=== PATIENT | female | born 1995 | race Caucasian/White ===

== ENCOUNTER 2018-09-05 02:10 | Emergency (ER) | payer BC, SELFPAY ==
[2018-09-05 02:11] VITALS: BP 136/79; PULSE 109; RESP 16; TEMP 36.5; O2SAT 100; BMI 24.1
--- NOTE | 2018-09-05 02:21 | ED.VISSUMM ---
- ER Visit Summary Date of Service: 09/05/18 Chief Complaint: Right ear infection History of Present Illness: The patient is a 23 F who presents with right ear redness pain and swelling. She has had her ears gauged for years. However she recently removed the piercing. Since yesterday she has noticed some redness and swelling. She also noticed a bubble on her neck it is since concerned that she has infection going down into her neck. No fevers. No nausea or vomiting. No systemic symptoms. Physical Examination: Afebrile initial heart rate 109 Patient resting comfortably no distress Heart regular rate and rhythm Lungs are clear Patient has erythema and soft tissue swelling of the right earlobe around the site of her piercing She has a single enlarged tender preauricular lymph node Test Results: Not indicated Emergency Department Course and Treatment: Patient has cellulitis of her earlobe. She was given Keflex and Bactrim here as well as prescriptions for the same. She understands to return for new or worsening symptoms and was discharged home. Treatment Plan: [] Disposition: Discharge Impression: Cellulitis right ear This note was generated with [employer] dictation software. It may contain incorrect words, spelling, and punctuation that were not noted in review of the chart prior to signing ED Disposition - Plan for ED Patient: Chief Complaint: Ear Problem Referrals: Bruno Carey MD [Primary Care Provider] -
--- NOTE | 2018-09-05 02:22 | ED.DEP ---
ED Disposition - Plan for ED Patient: Chief Complaint: Ear Problem Instructions: ED Infec Skin Cellulitis Prescriptions: Cephalexin [Keflex] 500 mg PO Q6 #28 cap Smz/Tmp Ds [Bactrim Ds] 1 tab PO BID #14 tab Referrals: Bruno Carey MD [Primary Care Provider] -
[2018-09-05 02:27] VITALS: BP 126/86; PULSE 99; RESP 16; O2SAT 100
[2018-09-05] MEDS: Cephalexin 250 MG Capsule 500 MG PO (02:30)
[2018-09-05] MEDS: Smz/Tmp Ds Tablet 1 TABLET PO (02:30)
== END 2018-09-05 02:32 | disposition home or self-care (01) ==
LOC: ED 02:24
PROVIDERS: Emergency Provider Emergency Medicine; Family Provider Family Medicine; PCP Family Medicine
DX: H60.11 Cellulitis of right external ear (principal); Z72.0 Tobacco use
CPT/HCPCS: 99283

== ENCOUNTER 2019-02-07 18:19 | Emergency (ER) | payer OTHER, SELFPAY ==
[2019-02-07 18:20] VITALS: BP 128/73; PULSE 85; RESP 16; TEMP 36.6; O2SAT 98; BMI 23.3
--- NOTE | 2019-02-07 19:12 | ED.DCSUM_ITS ---
- ER Visit Summary Date of Service: 02/07/19 Chief Complaint: Dental pain History of Present Illness: The patient is a 23 F who presents with dental pain is been getting worse over the last 4 days. Patient states she had a procedure done 4 days ago and was told by her dentist that there was nerve damage in her tooth. Patient has been on penicillin and ibuprofen with no improvement. Patient feels like there is some swelling of her face. Patient denies any hot or cold sensitivity. Physical Examination: Vital signs are stable. Patient is afebrile. Patient is in no acute distress. Oral mucosa is pink and moist. There is tenderness to percussion over the right upper first molar. There is some gingival edema around this tooth. There is no fluctuance. There is no discharge or drainage. Oropharynx is clear. Neck is supple. Trachea is midline. There is no JVD noted. Cranial nerves II through XII are intact. There are no focal motor or sensory deficits noted. Emergency Department Course and Treatment: Patient was given prescriptions for Augmentin and Naprosyn. Patient was instructed to stop taking the penicillin and ibuprofen. Patient was instructed to follow-up with her dentist in 3 to 5 days. Patient understood and was agreeable with the plan. All questions were answered. Disposition: Discharge home Impression: Odontalgia This note was generated with [employer] dictation software. It may contain incorrect words, spelling, and punctuation that were not noted in review of the chart prior to signing ED Disposition - Plan for ED Patient: Disposition: Home or Assisted Living Diagnosis: Odontalgia Instructions: ED Tooth Pain Prescriptions: Amox/Clavulanate Tablet [Augmentin Tablet] 875 mg PO Q12H #20 tab Naproxen [Naprosyn] 500 mg PO BID PRN #20 tab Referrals: Bruno Carey MD [Primary Care Provider] - 3-5 Days
[2019-02-07 19:16] VITALS: BP 134/74; PULSE 80; RESP 14; O2SAT 98
== END 2019-02-07 19:20 | disposition home or self-care (01) ==
PROVIDERS: Emergency Provider Emergency Medicine; Family Provider Family Medicine; PCP Family Medicine
DX: K08.89 Other specified disorders of teeth and supporting structures (principal); K04.7 Periapical abscess without sinus; F17.200 Nicotine dependence, unspecified, uncomplicated
CPT/HCPCS: 99282

== ENCOUNTER 2019-02-07 19:51 | Emergency (ER) | payer OTHER, SELFPAY ==
[2019-02-07 18:20] VITALS: BMI 23.3
[2019-02-07 19:52] VITALS: BP 153/83; PULSE 92; RESP 18; TEMP 36.9; O2SAT 96; BMI 22.9
--- NOTE | 2019-02-07 20:19 | ED.RN ---
PATIENT CAME IN AND ASKED THIS TRIAGE NURSE FOR THE DOCTOR TO GIVE HER MEDICATIONS FROM HER PREVIOUS VISIT BECAUSE THE PHARMACIES WERE NOT OPEN. CHARGE NURSE SAID THAT SHE NEEDED TO BE SEEN AGAIN. I CHECKED HER IN AND THEN SHE DECIDED SHE DIDN'T WANT TO WAIT.
== END 2019-02-07 19:56 | disposition left against medical advice (07) ==
LOC: ED 20:03
PROVIDERS: Emergency Provider Emergency Medicine; Family Provider Family Medicine; PCP Family Medicine
DX: Z53.21 Procedure and treatment not carried out due to patient leaving prior to being seen by health care provider (principal)

== ENCOUNTER 2022-07-13 06:16 | Emergency (ER) | payer SELFPAY ==
[2022-07-13 06:17] VITALS: BP 117/70; PULSE 97; RESP 16; TEMP 36.1; O2SAT 100; BMI 24.8
--- NOTE | 2022-07-13 06:35 | US_ITS ---
STUDY: ULTRASOUND TRANSVAGINAL CLINICAL: Female, 26 years old. Pelvic pain and irregular bleeding TECHNIQUE: Transvaginal COMPARISON: None. FINDINGS: Normal uterine size measuring 9.0 cm in maximal craniocaudal dimension. There are no myometrial masses. Normal endometrial thickness measuring 2.0 mm. There are no endometrial masses, and there is no fluid in the endometrial cavity. Normal uterine cervix. Normal right ovary, measuring 2.0 x 2.1 x 2.3 cm. There are multiple follicles without a dominant cyst. Normal left ovary, measuring 1.9 x 2.7 x 1.5 cm. There are multiple follicles without a dominant cyst. There is no free fluid in the pelvis. US/Transvaginal Non- IMPRESSION: Within normal limits examination. Electronically Signed: Xuan Diego MD at 8:27 EDT ,
[2022-07-13 07:01] LABS: Absolute Lymphocyte Count 2.43 X10^3/uL (0.83-4.51); Absolute Neutrophil Count 1.9 X10^3/uL (2.0-7.7); Basophil# 0.02 X10^3/uL; Basophil% 0.4 % (0-1); Eosinophil# 0.28 X10^3/uL; Eosinophils% 5.5 % (0-5); Hematocrit 40.3 % (37-47); Hemoglobin 13.3 g/dL (12.0-15.0); Lymphocyte # 2.43 X10^3/ul (0.83-4.51); Lymphocyte % 47.4 % (19-41); Mean Corpuscular Hgb 30.1 pg (27.0-32.0); Mean Corpuscular Volume 91.2 fL (81-99); Mean Platelet Vol. 10.6 fl (6.2-12.0); Monocyte# 0.53 X10^3/uL; Monocyte% 10.3 % (0-10); NRBC Flagged by Analyzer 0 % (0-5); Neutrophil # 1.86 X10^3/uL (2.7-7.7); Neutrophil % 36.2 % (47-70); Platelet Count 236 K/mm3 (150-450); RBC Distribution Width CV 12.1 % (11.6-14.6); RBC Distribution Width SD 40.8 fl (35.1-43.9); Red Blood Count 4.42 M/mm3 (4.2-5.4); White Blood Count 5.1 K/mm3 (4.4-11.0)
[2022-07-13 07:13] LABS: BUN 9 mg/dL (7-18); Creatinine, Serum 0.85 mg/dL (0.55-1.02); Glucose 92 mg/dL (74-106)
[2022-07-13 07:14] LABS: Anion Gap 7 (5-15); BUN/Creat Ratio 10.5 RATIO (10-20); Calcium,Total 8.7 mg/dL (8.5-10.1); Chloride 107 mmol/L (98-107); EST Glomerular Filtration Rate 84 mL/min (>60); Est Glom Filt Rate - Afr Amer 101 mL/min (>60); Estimated Creatinine Clearance 88.67 ml/min; Potassium 3.6 mmol/L (3.5-5.1); Sodium Level 140 mmol/L (136-145)
[2022-07-13 07:18] LABS: Internal QC Validated? YES +Cl - CLEAR BKGD; Pregnancy, Serum, hCG Quali. NEGATIVE Negative
--- NOTE | 2022-07-13 07:20 | ED.VIS.FEGU ---
HPI HPI - Female History of Present Illness Chief Complaint: Vag Bleeding Narrative Narrative: Patient is a 26-year-old female with no significant past medical history. She states that she is not on control and that her menstrual cycles are typically regular. She states that she had a menstrual cycle that ended around June 17. However she states that beginning July 03 she developed generalized lower abdominal cramping and pain with recurrent heavy bleeding. She denies any history of bleeding disorder or blood thinner use. She states that she waited a few days for this to resolve but she has continued to have bleeding and pain and therefore comes in for evaluation. Patient states that there is no vaginal discharge or concern for STD but she does report she is sexually active without contraception and there is concern for PFSH PFS Medical History Fatigue Home Medications NK 07/13/22 [History Last Taken Unknown] Allergy/AdvReac Type Severity Reaction Status Date / Time latex Allergy Rash Verified 07/13/22 06:23 Surgical History History of removal of cyst Social History (Updated 08/18/19 @ 12:38 by Christopher GODDARD, PA) Smoking Status: Current every day smoker tobacco type: cigarettes ROS ROS ED Constitutional Constitutional ED: Denies chills or fever(s) ENT ENT ED: Denies sore throat Cardiovascular Cardiovascular: Denies chest pain Respiratory/Chest Respiratory/Chest: Denies cough or dyspnea Gastrointestinal Gastrointestinal: Reports abdominal pain; Denies diarrhea, nausea or vomiting Genitourinary Genitourinary ED: Reports other Details: Positive vaginal bleeding ; Denies dysuria Musculoskeletal Musculoskeletal: Denies myalgias Integumentary Denies rash Neurologic Neurologic: Denies headache(s) Hematologic/Lymphatic Hematologic/Lymphatic: Denies easy bleeding or easy bruising EXAM Physical Exam Const Vital Signs: 07/13/22 06:17 Temperature 96.9 F L Temperature Source Temporal Pulse Rate 97 Respiratory Rate 16 Blood Pressure 117/70 Blood Pressure Mean 85 Pulse Ox 100 Oxygen Delivery Method Room Air Positive well nourished and well developed General Appearance ED: well developed Eyes PERRL and EOMs intact bilaterally General Eye ED: Negative for pale conjunctiva Neck supple Resp normal respiratory effort and clear to auscultation bilaterally Cardio regular rate and regular rhythm GI non-distended GI Narrative: There is mild pain with palpation along the lower abdomen diffusely without voluntary guarding or rigidity Auscultation: normoactive bowel sounds Palpation: soft Narrative: Patient deferred Extremity normal to inspection Neuro oriented x3, CN's II-XII intact bilaterally and no sensory deficits noted Sensorium / Orientation: alert Psych mental status grossly normal Skin no rashes or lesions noted MDM MDM MDM Narrative Medical decision making narrative: Patient presented to the ER normotensive and afebrile. She reported persistent vaginal bleeding since July 03 with possibility of . Secondary to the potential for a miscarriage or ectopic I did elect to perform basic laboratory studies and transvaginal ultrasound. Patient's white blood cell count is normal her H&H is stable indicating she does not need a transfusion her platelets are normal as well and serum test negative. Therefore at this time pending a normal ultrasound to rule out cystic structure or acute pelvic pathology I do feel patient should be stable for discharge and outpatient follow-up as vitals are stable and she has no need for blood transfusion at this time. Patient will be signed out to Dr. Villareal pending the results of her ultrasound report Lab Data Attestation: I reviewed the patient's lab results. Labs: Laboratory Results - last 24 hr 07/13/22 07/13/22 07/13/22 06:46 06:46 06:46 WBC 5.1 RBC 4.42 Hgb 13.3 Hct 40.3 MCV 91.2 MCH 30.1 MCHC 33.0 RDW Std Deviation 40.8 RDW Coeff of Brigid 12.1 Plt Count 236 MPV 10.6 Immature Gran % (Auto) 0.200 Neut % (Auto) 36.2 L Lymph % (Auto) 47.4 H [place] % (Auto) 10.3 H Eos % (Auto) 5.5 H Baso % (Auto) 0.4 Absolute Neuts (auto) 1.9 L Absolute Lymphs (auto) 2.43 Nucleated RBC % 0 Sodium 140 Potassium 3.6 Chloride 107 Carbon Dioxide 26.0 Anion Gap 7 BUN 9 Creatinine 0.85 Estim Creat Clear Calc 88.67 Est GFR (MDRD) Af Amer 101 Est GFR (MDRD) Non-Af 84 BUN/Creatinine Ratio 10.5 Glucose 92 Calcium 8.7 Serum , Qual NEGATIVE Discharge Plan Triage Chief Complaint: Vag Bleeding ED Provider: Rob Moore Dx/Rx/DC Orders Clinical Impression: DUB (dysfunctional uterine bleeding) Instructions: ED Dysfunctional Uterine Bleeding Prescriptions: No Action NK Primary Care Provider: Care Physician,No Primary Referrals: Care Physician,No Primary [Primary Care Provider] - Jyoti Mckinney DO [Med Staff - Active Staff] - Activity Restrictions/Additional Instructions: Please follow-up with [facility] for repeat evaluation and return to the ER should you have any further concerns
== END 2022-07-13 09:01 | disposition home or self-care (01) ==
PROVIDERS: Emergency Provider Emergency Medicine; Visit Provider Emergency Medicine
DX: N93.8 Other specified abnormal uterine and vaginal bleeding (principal); F17.210 Nicotine dependence, cigarettes, uncomplicated
CPT/HCPCS: 76830; 80048; 84703; 85025; 99283

== ENCOUNTER 2023-01-12 23:01 | Emergency (ER) | payer OTHER, SELFPAY ==
[2023-01-12 23:01] VITALS: BP 122/86; PULSE 78; RESP 16; TEMP 36.8; O2SAT 100; BMI 25.3
--- NOTE | 2023-01-12 23:37 | ED.VIS.FEGU ---
HPI HPI - Female History of Present Illness Chief Complaint: Vag Bleeding Informant: patient Narrative Narrative: Increasing vaginal bleeding cramping since yesterday. Reports took a Plan B pill a week ago. Mild symptoms got worse yesterday. No fevers. No urinary symptoms. Last menstrual period 2 weeks ago. No past medical history. No anticoagulants. Does not follow with gynecology on a regular basis. She states her last pelvic exam was at urgent care. She has no concerns for STDs. Prior similar symptoms: No PFSH PFSH Medical History Fatigue Home Medications NK 07/13/22 [History Last Taken Unknown] Allergy/AdvReac Type Severity Reaction Status Date / Time latex Allergy Rash Verified 01/12/23 23:03 Surgical History History of removal of cyst Social History Smoking Status: Current every day smoker tobacco type: cigarettes ROS ROS ED Constitutional Constitutional ED: Denies chills, fever(s) or sweats Eyes Eyes: Denies change in vision ENT ENT ED: Denies dysphagia or sore throat Cardiovascular Cardiovascular: Denies chest pain, leg edema, palpitations or racing heartbeat Respiratory/Chest Respiratory/Chest: Denies cough, dyspnea or dyspnea on exertion Gastrointestinal Gastrointestinal: Denies abdominal pain, diarrhea, nausea or vomiting Genitourinary Genitourinary ED: Reports other Details: Vaginal bleeding ; Denies dysuria, hematuria or urinary frequency Musculoskeletal Musculoskeletal: Denies back pain, extremity pain or neck pain Integumentary Denies rash or wounds Neurologic Neurologic: Denies headache(s), paresthesias or weakness EXAM Physical Exam Const Vital Signs: 01/12/23 23:01 01/13/23 00:41 Temperature 98.3 F Temperature Source Temporal Pulse Rate 78 78 Respiratory Rate 16 16 Blood Pressure 122/86 H 120/70 Blood Pressure Mean 98 Pulse Ox 100 Oxygen Delivery Method Room Air Positive well nourished and well developed General Appearance ED: well developed and NAD HEENT Reports moist mucous membranes normocephalic and atraumatic Eyes PERRL, EOMs intact bilaterally and conjunctivae normal General Eye ED: Yes normal appearance of both eyes Neck no lymphadenopathy and supple General: Negative for tenderness Chest Wall Chest: Negative for tenderness Resp normal respiratory effort and normal air movement Effort and Inspection: symmetric chest movement; Negative for respiratory distress Cardio regular rate, regular rhythm and no murmurs Peripheral Pulses: pulses 2+ throughout GI normal to inspection, nondistended, normoactive bowel sounds and non-tender Palpation: Negative for guarding or rebound tenderness present Narrative: Nursing present. Normal external exam. Speculum examination normal cervix there is mild bleeding from the os and small amount of blood in the vault. Back/Spine no CVA tenderness and no thoracic nor lumbar tenderness Extremity normal to inspection General Extremety ED: Negative for edema or tenderness General Extremity: Negative for edema Neuro oriented x3 and no sensory deficits noted Sensorium / Orientation: awake and alert Skin no rashes or lesions noted and no wounds MDM MDM MDM Narrative Medical decision making narrative: Interventions / MDM: Differential diagnosis: Dysfunctional uterine bleeding, STDs Diagnosis considered but do not suspect: N/A My EKG interpretation: N/A Imaging independently reviewed and interpreted by myself: N/A External documents reviewed: N/A Test considered but not ordered:N/A ED course: Patient declined any medications for cramping. She is post plan B intake a week ago. hCG negative urine 1+ bacteria occult blood. Urine culture sent. Denies urine symptoms. Pelvic exam mild bleeding no active bleeding. Patient has no concerns for STDs, will hold off any treatment unless screening comes back positive. Patient is reassured. She will follow-up with gynecology. Return precautions. All questions were answered. Re-evaluation: stable Disposition discussed with patient/family/significant other: Patient Case discussed with consulting clinician: N/A Lab Data Attestation: I reviewed the patient's lab results. Labs: Laboratory Results - last 24 hr 01/12/23 01/12/23 23:50 23:50 Urine Color Yellow Urine Clarity Clear Urine pH 7.0 Ur Specific [place] 1.010 Urine Protein Negative Urine Glucose (UA) Normal Urine Ketones Negative Urine Occult Blood 25 H Urine Nitrite Negative Urine Bilirubin Negative Urine Urobilinogen Normal Ur Leukocyte Esterase Negative Urine RBC 0 SEEN Urine WBC 0 SEEN Ur Squamous Epith Cells 0 SEEN Urine Bacteria 1+ Urine Mucus 0 SEEN Urine Yeast 1+ Urine Test Negative Chlam trachomat DNA PCR Negative N.gonorrhoeae DNA (PCR) Negative Discharge Plan Triage Chief Complaint: Vag Bleeding ED Provider: Jose Espana Dx/Rx/DC Orders Clinical Impression: Uterine bleeding, dysfunctional Instructions: ED Dysfunctional Uterine Bleeding Prescriptions: No Action NK Primary Care Provider: Care Physician,No Primary Referrals: Jyoti Mckinney DO [Med Staff - Active Staff] - 5-7 Days Care Physician,No Primary [Primary Care Provider] - Activity Restrictions/Additional Instructions: Pelvic exam with normal structures minor bleeding from the cervical os. negative. STD screening sent. Urine culture sent. You will be contacted for any abnormal results. Follow-up with gynecology for outpatient evaluation. Disposition Disposition: Home, Self Care Discharge Date/Time: 01/13/23 00:42
[2023-01-12 23:56] LABS: Mucous, Urine 0 SEEN /hpf (<or=2+); Red Blood Cells-Urine 0 SEEN /hpf (0-5); Squamous Epithelial Cells - UA 0 SEEN /hpf (5-10); White Blood Cells 0 SEEN /hpf (0-5)
[2023-01-13 00:07] LABS: Color, Urine Yellow (Yellow); Glucose, Dipstick Normal (Normal); Ketone-Dipstick Negative (Negative); Leukocyte Esterase-Dipstick Negative /ul (Negative); Nitrite-Dipstick Negative (Negative); Occult Blood-Urine 25 /ul (Negative); Protein-Dipstick Negative (Negative); Urine Bilirubin Dipstick Negative (Negative); Urine Clarity Clear (Clear); Urine Urobilinogen Normal (Normal)
[2023-01-13 00:20] LABS: Bacteria 1+ /hpf (None Seen); Internal QC Validated? YES +Cl - CLEAR BKGD; Pregnancy, Urine Negative Negative; Yeast-Urine 1+ /hpf (None Seen)
[2023-01-13 00:41] VITALS: BP 120/70; PULSE 78; RESP 16
[2023-01-13 02:19] LABS: Chlamydia Trachomatis by PCR Negative (Negative); Neisserai gonorrhoeae by PCR Negative (Negative); Probe Check PASS; Sample Adequacy Control PASS; Specimen Processing Control PASS
== END 2023-01-13 00:42 | disposition home or self-care (01) ==
LOC: ED 01-13 00:33
PROVIDERS: Emergency Provider Emergency Medicine; Visit Provider Emergency Medicine
DX: N93.8 Other specified abnormal uterine and vaginal bleeding (principal); F17.210 Nicotine dependence, cigarettes, uncomplicated
CPT/HCPCS: 81001; 81025; 87086; 87088; 87491; 87591; 99282